=== PATIENT | male | born 1960 | race Caucasian/White ===

== ENCOUNTER → 2017-05-13 | Outpatient (REF) | payer BC | LOC: M LAB REF 20:01 | DX: L02.212 Cutaneous abscess of back [any part, except buttock and flank] (principal) | CPT/HCPCS: 87186 ==

== ENCOUNTER → 2023-01-10 | Outpatient (REF) | payer BC | LOC: M LAB REF 19:47 | PROVIDERS: ATTEND Physician Assistant | DX: L02.11 Cutaneous abscess of neck (principal) ==